=== PATIENT | male | born 1975 | race Caucasian/White ===

== ENCOUNTER → 2016-05-24 | Outpatient (REF) | payer BC ==
[2016-05-24 12:52] LABS: IMMMOTILE SPERM CENTRIFUGED ABSENT (ABSENT); IMMOTILE SPERM ABSENT (ABSENT); MOTILE SPERM ABSENT (ABSENT); MOTILE SPERM CENTRIFUGED ABSENT (ABSENT)
== END ==
LOC: M LAB REF 11:49
PROVIDERS: ATTEND Surgery
DX: Z30.2 Encounter for sterilization (principal)

== ENCOUNTER 2017-03-09 10:40 | Emergency (ER) | payer BC, OTHER ==
[~2017-03-09] VITALS: Ht 182.9 cm; Wt 95.5 kg
[2017-03-09] MEDS ORDERED: KETOROLAC 60 MG/2 ML VIAL (J1885) IM ONE (11:30)
[2017-03-09] MEDS ORDERED: CYCL10TA PO (11:58)
[2017-03-09 12:12] VITALS: BP 124/75
== END 2017-03-09 12:13 | disposition home or self-care (01) ==
LOC: M ED 10:40
DX: M54.2 Cervicalgia (principal); G89.29 Other chronic pain; F17.210 Nicotine dependence, cigarettes, uncomplicated; Z98.890 Other specified postprocedural states
CPT/HCPCS: 96372; 99283; J1885

== ENCOUNTER → 2018-06-02 | Outpatient (REF) | payer OTHER ==
[~2018-06-02] MED LIST: CYCL10TA PO
== END ==
LOC: M SFHCPLAZ 13:01
PROVIDERS: ATTEND Family Medicine
DX: L72.0 Epidermal cyst (principal)

== ENCOUNTER → 2018-09-11 | Outpatient (CLI) | payer OTHER ==
--- NOTE | 2018-09-12 01:35 | REP ---
Clinical: Left facial numbness. Technique: Six views of the facial bones. Findings: Mucoperiosteal changes primarily involving the bilateral maxillary sinuses noted and small amount of layering fluid cannot be excluded. The remainder of the sinuses appear relatively well aerated and clear. The osseous structures are intact and normal. No foreign body. Impression: Moderate mucoperiosteal changes involving the maxillary sinuses. Electronically Signed by Wilmer Urban MD 09/12/2018 01:27 A
--- NOTE | 2018-09-12 01:57 | REP ---
Clinical: Cervical neck pain/stiffness . Technique: AP, lateral, flexion/extension, bilateral oblique, and open-mouth views. Findings: Alignment and lordosis is maintained. There is no evidence for acute fracture / compression injury or subluxation. No significant degenerative changes are appreciated. Oblique views demonstrate patent neural foramen. Open mouth view demonstrates normal C1-C2 articulation and odontoid process. Impression: Age-appropriate cervical spine series. No significant degenerative changes are appreciated by radiographic evaluation. If the patient remains symptomatic consider MRI for further investigation. Electronically Signed by Wilmer Urban MD 09/12/2018 01:48 A
== END ==
LOC: M RAD 14:04
PROVIDERS: ATTEND Nurse Practitioner Family
DX: R20.0 Anesthesia of skin (principal); M43.6 Torticollis; J32.0 Chronic maxillary sinusitis

== ENCOUNTER → 2018-09-15 | Outpatient (REF) | payer OTHER ==
[2018-09-15 16:18] LABS: BASO # 0.1 10^3/uL (0.0-0.2); BASO % 0.7 % (0.0-1.0); EOS # 0.2 10^3/uL (0.0-0.50); EOS % 2.1 % (0.0-3.0); HEMATOCRIT 45.3 % (42.0-52.0); HEMOGLOBIN 15.1 g/dl (13.5-17.5); LYMPH # 3.3 10^3/uL (1.5-4.5); LYMPH % 40.9 % (24.0-44.0); MEAN CORPUSCULAR HEMOGLOBIN 30.8 pg (27.0-33.0); MEAN CORPUSCULAR HGB CONC 33.3 g/dl (32.0-36.5); MEAN CORPUSCULAR VOLUME 92.4 fl (80.0-96.0); MONO # 0.7 10^3/uL (0.0-0.8); MONO % 8.6 % (0.0-5.0); NEUTROPHILS # 3.9 10^3/uL (1.8-7.7); NEUTROPHILS % 47.6 % (36.0-66.0); PLATELET COUNT, AUTOMATED 228 10^3/uL (150-450); WHITE BLOOD COUNT 8.1 10^3/uL (4.0-10.0)
[2018-09-15 16:27] LABS: ALBUMIN 4.3 GM/DL (3.2-5.2); ALT/SGPT 33 U/L (12-78); BILIRUBIN,TOTAL 0.5 MG/DL (0.2-1.0); BLOOD UREA NITROGEN 16 MG/DL (7-18); CALCIUM LEVEL 8.9 MG/DL (8.5-10.1); CARBON DIOXIDE LEVEL 28 MEQ/L (21-32); CHLORIDE LEVEL 102 MEQ/L (98-107); CHOLESTEROL LEVEL 184 MG/DL (<200); CHOLESTEROL RISK RATIO 2.329 (<5); CREATININE FOR GFR 1.23 MG/DL (0.70-1.30); GLOMERULAR FILTRATION RATE > 60.0 (>60); GLUCOSE, FASTING 97 MG/DL (70-100); HDL CHOLESTEROL 79 MG/DL (>40); LDL CHOLESTEROL 89 MG/DL (<100); NON-HDL-C 105 MG/DL; POTASSIUM SERUM 4.5 MEQ/L (3.5-5.1); SODIUM LEVEL 136 MEQ/L (136-145); TRIGLYCERIDES LEVEL 80 MG/DL (<150)
[2018-09-19 00:07] LABS: Lyme Disease IgG/IgM Antibodie <0.91 ISR (0.00-0.90); Lyme Disease IgM Ab Quantitati <0.80 index (0.00-0.79)
== END ==
LOC: M SFHCPLAZ 13:44
PROVIDERS: ATTEND Nurse Practitioner Family
DX: R20.0 Anesthesia of skin (principal); Z13.220 Encounter for screening for lipoid disorders

== ENCOUNTER → 2018-10-19 | Outpatient (CLI) | payer BC ==
[~2018-10-19] MED LIST changes: +PROHANCE 279.3MG/ML 15ML VIAL (A9576) As Ordered ONE; +PROHANCE 279.3MG/ML 5ML VIAL (A9576) As Ordered ONE
--- NOTE | 2018-10-19 10:25 | REP ---
MRI brain without and with IV contrast: History: Left facial numbness for the last 3 months. . Comparison study: No comparison MRI. Technique: Axial and sagittal imaging planes are utilized for T1 and T2-weighted scans. Sequences include spin-echo, fast spin echo, FLAIR, and diffusion weighted sequences. The gadolinium enhancement dose is 19 ml of intravenous ProHance. MRI findings: No bony calvarial lesion is seen. Craniocervical junction and upper cervical cord are normal in appearance. There is moderate mucosal thickening affecting the maxillary and to a lesser extent ethmoid air cells. No intraorbital abnormality is seen. The lateral, third, and fourth ventricles are normal in size and position. Baig-white differentiation pattern is intact above and below the tentorium. There is no evidence of intracranial hemorrhage. No mass, infarction, extra-axial fluid collection or midline shift is seen. No abnormal white matter lesion is seen. Postcontrast images show no abnormal intracranial gadolinium enhancement. Impression: Paranasal sinus mucosal thickening, otherwise negative brain MRI study without and with IV contrast. Electronically Signed by Fortino Aden MD 10/19/2018 10:17 A
== END ==
LOC: M RAD 08:57
PROVIDERS: ATTEND Nurse Practitioner Family
DX: J34.89 Other specified disorders of nose and nasal sinuses (principal)
CPT/HCPCS: 70553; A9576

== ENCOUNTER → 2018-11-21 | Outpatient (REF) | payer BC, OTHER ==
[~2018-11-21] MED LIST changes: -PROHANCE 279.3MG/ML 15ML VIAL (A9576) As Ordered ONE; -PROHANCE 279.3MG/ML 5ML VIAL (A9576) As Ordered ONE
[2018-11-21 12:50] LABS: FOLATE 12.6 NG/ML
[2018-11-26 00:06] LABS: CERULOPLASMIN 20.1 mg/dL (16.0-31.0); COPPER PLASMA 85 ug/dL (72-166); LEAD BLOOD ADULT <1 ug/dL (0-4); MERCURY LEVEL 1.6 ug/L (0.0-14.9); VITAMIN B6,PYRIDOXAL PHOSPHATE 72.8 ug/L (5.3-46.7); VITAMIN E(GAMMA TOCOPHEROL) 2.5 mg/L (0.5-5.5)
== END ==
LOC: M LABNEURO 10:01
PROVIDERS: ATTEND Psychiatry & Neurology Neurology
DX: R20.2 Paresthesia of skin (principal)

== ENCOUNTER 2019-11-27 08:09 | Emergency (ER) | payer BC, OTHER ==
[~2019-11-27 08:09] MED LIST changes: +CYCL-707 PO; -CYCL10TA PO
[2019-11-27] MEDS ORDERED: MORPHINE 4 MG/ML 1ML VIAL/SYRINGE (J2270) ONE (08:54)
[2019-11-27] MEDS ORDERED: LORazepam 2 MG/ML VIAL ONE (08:54)
[2019-11-27] MEDS ORDERED: MORPHINE 4 MG/ML 1ML VIAL/SYRINGE (J2270) As Ordered ONE (08:54)
[2019-11-27] MEDS ORDERED: ONDANSETRON 4MG/2ML VIAL ONE (08:54)
[2019-11-27] MEDS ORDERED: ONDANSETRON 4MG/2ML VIAL As Ordered ONE (08:54)
[2019-11-27] MEDS ORDERED: LORazepam 2 MG/ML VIAL As Ordered ONE (08:56)
== END 2019-11-27 14:55 | disposition home or self-care (01) ==
LOC: M ED 08:09
DX: M54.16 Radiculopathy, lumbar region (principal); M51.27 Other intervertebral disc displacement, lumbosacral region
CPT/HCPCS: 72148; 96374; 96375; 99284; J2060; J2270; J2405

== ENCOUNTER → 2021-06-11 | Outpatient (CLI) | payer BC | LOC: M SLEEP HO 12:20 | PROVIDERS: ATTEND Physician Assistant | DX: G47.30 Sleep apnea, unspecified (principal) ==

== ENCOUNTER → 2021-06-11 | Outpatient (CLI) | payer BC ==
[2021-06-11 13:13] LABS: BASO # 0.1 10^3/uL (0.0-0.2); BASO % 0.6 % (0.0-1.0); EOS # 0.2 10^3/uL (0.0-0.5); EOS % 1.7 % (0.0-3.0); HEMATOCRIT 43.7 % (42.0-52.0); HEMOGLOBIN 14.6 g/dl (13.5-17.5); LYMPH % 31.3 % (24.0-44.0); MEAN CORPUSCULAR HEMOGLOBIN 30.4 pg (27.0-33.0); MEAN CORPUSCULAR HGB CONC 33.4 g/dl (32.0-36.5); MONO # 0.7 10^3/uL (0.0-0.8); MONO % 7.3 % (2.0-8.0); NEUTROPHILS # 5.6 10^3/uL (1.5-8.5); NEUTROPHILS % 58.9 % (36.0-66.0); PLATELET COUNT, AUTOMATED 226 10^3/uL (150-450); WHITE BLOOD COUNT 9.6 10^3/uL (4.0-10.0)
[2021-06-11 13:38] LABS: HEMOGLOBIN A1c 5.7 %
[2021-06-11 13:40] LABS: ALBUMIN 4.2 GM/DL (3.2-5.2); ALT/SGPT 44 U/L (12-78); BILIRUBIN,TOTAL 0.5 MG/DL (0.2-1.0); BLOOD UREA NITROGEN 19 MG/DL (7-18); CALCIUM LEVEL 9.4 MG/DL (8.5-10.1); CARBON DIOXIDE LEVEL 30 MEQ/L (21-32); CHLORIDE LEVEL 105 MEQ/L (98-107); CHOLESTEROL LEVEL 184 MG/DL (<200); CHOLESTEROL RISK RATIO 2.243 (<5); CREATININE FOR GFR 1.14 MG/DL (0.70-1.30); GLOMERULAR FILTRATION RATE > 60.0 (>60); GLUCOSE, FASTING 139 MG/DL (70-100); HDL CHOLESTEROL 82 MG/DL (>40); LDL CHOLESTEROL 91 MG/DL (<100); NON-HDL-C 102 MG/DL; POTASSIUM SERUM 4.1 MEQ/L (3.5-5.1); SODIUM LEVEL 140 MEQ/L (136-145); TOTAL PROTEIN 7.7 GM/DL (6.4-8.2); TRIGLYCERIDES LEVEL 54 MG/DL (<150)
== END ==
LOC: M LAB 12:23
PROVIDERS: ATTEND Physician Assistant
DX: M51.36 Other intervertebral disc degeneration, lumbar region (principal); Z13.220 Encounter for screening for lipoid disorders; Z13.1 Encounter for screening for diabetes mellitus

== ENCOUNTER → 2021-06-11 | Outpatient (CLI) | payer BC, OTHER | LOC: M PAIN 11:30 | PROVIDERS: ATTEND Nurse Practitioner Family | DX: M96.1 Postlaminectomy syndrome, not elsewhere classified (principal); Z87.891 Personal history of nicotine dependence; Z79.899 Other long term (current) drug therapy ==

== ENCOUNTER → 2021-07-09 | Outpatient (CLI) | payer BC ==
[~2021-07-09] MED LIST changes: +PROHANCE 279.3MG/ML 15ML VIAL As Ordered ONE; +PROHANCE 279.3MG/ML 5ML VIAL As Ordered ONE
== END ==
LOC: M RAD 07:20
PROVIDERS: ATTEND Nurse Practitioner Family
DX: M96.1 Postlaminectomy syndrome, not elsewhere classified (principal); M51.36 Other intervertebral disc degeneration, lumbar region; M51.37 Other intervertebral disc degeneration, lumbosacral region; M48.062 Spinal stenosis, lumbar region with neurogenic claudication; M48.07 Spinal stenosis, lumbosacral region
CPT/HCPCS: 72158; A9576

== ENCOUNTER → 2021-08-27 | Outpatient (CLI) | payer BC ==
[~2021-08-27] MED LIST changes: -PROHANCE 279.3MG/ML 15ML VIAL As Ordered ONE; -PROHANCE 279.3MG/ML 5ML VIAL As Ordered ONE
== END ==
LOC: M SLEEP 20:00
PROVIDERS: ATTEND Physician Assistant
DX: G47.33 Obstructive sleep apnea (adult) (pediatric) (principal)

== ENCOUNTER → 2021-09-04 | Outpatient (CLI) | payer BC | LOC: M RAD 09:20 | PROVIDERS: ATTEND Anesthesiology Pain Medicine | DX: M96.1 Postlaminectomy syndrome, not elsewhere classified (principal) ==

== ENCOUNTER → 2022-04-29 | Outpatient (REF) | payer BC ==
[2022-04-29 13:33] LABS: BASO # 0.1 10^3/uL (0.0-0.2); BASO % 0.7 % (0.0-1.0); EOS # 0.3 10^3/uL (0.0-0.5); EOS % 3.9 % (0.0-3.0); HEMATOCRIT 45.6 % (42.0-52.0); HEMOGLOBIN 14.6 g/dl (13.5-17.5); LYMPH # 3.2 10^3/uL (1.5-5.0); LYMPH % 38.5 % (24.0-44.0); MEAN CORPUSCULAR VOLUME 93.8 fl (80.0-96.0); MONO # 0.7 10^3/uL (0.0-0.8); MONO % 8.7 % (2.0-8.0); PLATELET COUNT, AUTOMATED 220 10^3/uL (150-450); RED BLOOD COUNT 4.86 10^6/uL (4.30-6.10); WHITE BLOOD COUNT 8.3 10^3/uL (4.0-10.0)
[2022-04-29 13:46] LABS: HEMOGLOBIN A1c 5.4 % (4.0-6.0)
[2022-04-29 14:08] LABS: ALBUMIN 4.1 G/DL (3.2-5.2); ALKALINE PHOSPHATASE 46 U/L (46-116); ALT/SGPT 35 U/L (7.0-40); AST/SGOT 20 U/L (<34); BILIRUBIN,TOTAL 0.6 MG/DL (0.3-1.2); BLOOD UREA NITROGEN 17 MG/DL (9-23); CALCIUM LEVEL 9.3 MG/DL (8.5-10.1); CARBON DIOXIDE LEVEL 27 MMOL/L (20-31); CHLORIDE LEVEL 104 MMOL/L (98-107); CHOLESTEROL LEVEL 165 MG/DL (<200); CHOLESTEROL RISK RATIO 2.22 (<5); CREATININE FOR GFR 0.94 MG/DL (0.70-1.30); GLOMERULAR FILTRATION RATE > 60.0 (>60); GLUCOSE, FASTING 95 MG/DL (60-100); LDL CHOLESTEROL 81.8 MG/DL (<100); NON-HDL-C 91 MG/DL; POTASSIUM SERUM 4.9 MMOL/L (3.5-5.1); SODIUM LEVEL 139 MMOL/L (136-145); TRIGLYCERIDES LEVEL 46 MG/DL (<150)
== END ==
LOC: M SFHCADAM 09:27
PROVIDERS: ATTEND Physician Assistant
DX: R73.03 Prediabetes (principal)

== ENCOUNTER → 2024-02-23 | Outpatient (REF) | payer BC ==
[2024-02-23 13:14] LABS: BASO # 0.1 10^3/uL (0.0-0.2); BASO % 1.1 % (0.0-1.0); EOS # 0.1 10^3/uL (0.0-0.5); EOS % 2.1 % (0.0-3.0); HEMATOCRIT 43.2 % (42.0-52.0); HEMOGLOBIN 14.4 g/dl (13.5-17.5); LYMPH # 2.4 10^3/uL (1.5-5.0); LYMPH % 35.9 % (24.0-44.0); MEAN CORPUSCULAR HEMOGLOBIN 30.7 pg (27.0-33.0); MEAN CORPUSCULAR HGB CONC 33.3 g/dl (32.0-36.5); MEAN CORPUSCULAR VOLUME 92.1 fl (80.0-96.0); MONO # 0.5 10^3/uL (0.0-0.8); MONO % 7.4 % (2.0-8.0); NEUTROPHILS # 3.5 10^3/uL (1.5-8.5); PLATELET COUNT, AUTOMATED 198 10^3/uL (150-450); RED BLOOD COUNT 4.69 10^6/uL (4.30-6.10); WHITE BLOOD COUNT 6.7 10^3/uL (4.0-10.0)
[2024-02-23 13:15] LABS: ALBUMIN 4.2 G/DL (3.2-5.2); ALKALINE PHOSPHATASE 44 U/L (46-116); ALT/SGPT 30 U/L (7.0-40); AST/SGOT 15 U/L (<34); BILIRUBIN,TOTAL 0.6 MG/DL (0.3-1.2); BLOOD UREA NITROGEN 13 MG/DL (9-23); CALCIUM LEVEL 9.6 MG/DL (8.5-10.1); CARBON DIOXIDE LEVEL 26 MMOL/L (20-31); CHLORIDE LEVEL 108 MMOL/L (98-107); CHOLESTEROL LEVEL 206 MG/DL (<200); CHOLESTEROL RISK RATIO 2.87 (<5); CREATININE FOR GFR 0.78 MG/DL (0.70-1.30); GLOMERULAR FILTRATION RATE > 60.0 (>60); GLUCOSE, FASTING 113 MG/DL (60-100); HDL CHOLESTEROL 71.7 MG/DL (>40); LDL CHOLESTEROL 125.7 MG/DL (<100); NON-HDL-C 134.3 MG/DL; POTASSIUM SERUM 4.7 MMOL/L (3.5-5.1); SODIUM LEVEL 139 MMOL/L (136-145); TOTAL PROTEIN 7.4 G/DL (5.7-8.2); TRIGLYCERIDES LEVEL 43 MG/DL (<150)
[2024-02-23 13:36] LABS: HEMOGLOBIN A1c 5.6 % (4.0-6.0)
== END ==
LOC: M SFHCADAM 09:49
PROVIDERS: ATTEND Physician Assistant
DX: Z00.00 Encounter for general adult medical examination without abnormal findings (principal); M96.1 Postlaminectomy syndrome, not elsewhere classified; R73.03 Prediabetes

== ENCOUNTER 2024-09-04 16:14 | Emergency (ER) | payer BC ==
[~2024-09-04] VITALS: Ht 182.9 cm; Wt 99.0 kg
[2024-09-04 19:05] VITALS: BP 142/89; TEMP 99.5; O2SAT 96
== END 2024-09-04 20:48 | disposition left against medical advice (07) ==
LOC: M ED 16:14
DX: Z53.21 Procedure and treatment not carried out due to patient leaving prior to being seen by health care provider (principal)

== ENCOUNTER 2024-09-05 19:19 | Inpatient (IN) | payer BC ==
[~2024-09-05] VITALS: Ht 182.9 cm; Wt 100.5 kg
[2024-09-05 19:45] LABS: BASO % 0.1 % (0.0-1.0); EOS # 0.1 10^3/uL (0.0-0.5); EOS % 1.3 % (0.0-3.0); HEMATOCRIT 43.5 % (42.0-52.0); HEMOGLOBIN 14.7 g/dl (13.5-17.5); LYMPH # 0.7 10^3/uL (1.5-5.0); LYMPH % 6.9 % (24.0-44.0); MEAN CORPUSCULAR HEMOGLOBIN 30.8 pg (27.0-33.0); MEAN CORPUSCULAR HGB CONC 33.8 g/dl (32.0-36.5); MEAN CORPUSCULAR VOLUME 91.2 fl (80.0-96.0); MONO # 0.3 10^3/uL (0.0-0.8); MONO % 3.6 % (2.0-8.0); NEUTROPHILS # 8.2 10^3/uL (1.5-8.5); NEUTROPHILS % 87.8 % (36.0-66.0); PLATELET COUNT, AUTOMATED 156 10^3/uL (150-450); RED BLOOD COUNT 4.77 10^6/uL (4.30-6.10); WHITE BLOOD COUNT 9.4 10^3/uL (4.0-10.0)
[2024-09-05] MEDS: NS (Normal Saline) 0.9% 1,000 ML IV ONE ×3 (19:59→22:36)
[2024-09-05] MEDS: ONDANSETRON 4MG 2ML VIAL IV ONE (19:59)
[2024-09-05] MEDS: MORPHINE 4 MG/ML 1ML VIAL IV ONE (19:59)
[2024-09-05] MEDS ORDERED: ISOVUE-370 76% 100ML VIAL As Ordered ONE (20:02)
[2024-09-05] MEDS: ACETAMINOPHEN *IV* 1,000 MG in IV 1 EA IV ONE (20:03)
[2024-09-05 20:42] LABS: BLOOD UREA NITROGEN 18 MG/DL (9-23); CALCIUM LEVEL 8.6 MG/DL (8.5-10.1); CARBON DIOXIDE LEVEL 24 MMOL/L (20-31); CHLORIDE LEVEL 102 MMOL/L (98-107); CK-MB VALUE MASS < 1.0 NG/ML (<3.6); CPK CREATINE PHOSPHOKINASE 66 U/L (46-171); GLOMERULAR FILTRATION RATE > 90.0 (>60); GLUCOSE, FASTING 158 MG/DL (60-100); MB/CK RELATIVE INDEX 1.51 (< OR =4); POTASSIUM SERUM 4.5 MMOL/L (3.5-5.1); SODIUM LEVEL 139 MMOL/L (136-145)
[2024-09-05 21:16] LABS: CK-MB VALUE MASS < 1.0 NG/ML (<3.6)
[2024-09-05 21:17] LABS: CPK CREATINE PHOSPHOKINASE 54 U/L (46-171); MB/CK RELATIVE INDEX 1.85 (< OR =4)
[2024-09-05 21:45] LABS: PROCALCITONIN 0.44 ng/ml
[2024-09-05] MEDS: CEFEPIME HCL 2 GM in DEXTROSE 5% (D5W) ADV/MINI-BAG 50 ML IV ONE (21:54)
[2024-09-05 22:32] LABS: MUCUS, URINE RFX SMALL (NEGATIVE); RBC, URINE AUTO RFX 1 /HPF (0-3); SQUAM EPITHELIAL CELL UR AURFX 0 /HPF (0-6); WBC, URINE AUTO RFX 0 /HPF (0-3)
[2024-09-05 23:00] LABS: KETONE, URINE AUTO RFX NEGATIVE (NEGATIVE)
[2024-09-05 23:01] LABS: LEUKOCYTE ESTERASE UR AUTO RFX NEGATIVE (NEGATIVE); NITRITE, URINE AUTO RFX NEGATIVE (NEGATIVE)
[2024-09-06] VITALS (11 sets, daily range): BP systolic 107–140; BP diastolic 73–87; TEMP 97.7–99.1; O2SAT 93–98
[2024-09-06] MEDS ORDERED: ONDANSETRON 4MG ORAL DISINTEGRATING TAB SL PRN (00:50)
[2024-09-06] MEDS ORDERED: MOM 30ML SUSPENSION UDC PO PRN (00:50)
[2024-09-06] MEDS ORDERED: MAALOX 30 ML SUSP *UDC PO PRN (00:50)
[2024-09-06] MEDS ORDERED: MELO15TA28 PO (01:05)
[2024-09-06] MEDS ORDERED: GABA-1172 PO (01:05)
[2024-09-06] MEDS ORDERED: BACTDSTA PO (01:05)
[2024-09-06] MEDS ORDERED: HOME MED LIST COMPLETE! XX SCH (01:10)
[2024-09-06] MEDS: METHOCARBAMOL 1,000 MG/10 ML VIAL IV ONE (01:22)
[2024-09-06] MEDS: ACETAMINOPHEN 325 MG TAB PO PRN (03:58)
[2024-09-06 05:53] LABS: HEMATOCRIT 36.8 % (42.0-52.0); MEAN CORPUSCULAR HEMOGLOBIN 31.1 pg (27.0-33.0); MEAN CORPUSCULAR HGB CONC 34.2 g/dl (32.0-36.5); MEAN CORPUSCULAR VOLUME 90.9 fl (80.0-96.0); PLATELET COUNT, AUTOMATED 143 10^3/uL (150-450); RED BLOOD COUNT 4.05 10^6/uL (4.30-6.10); WHITE BLOOD COUNT 6.2 10^3/uL (4.0-10.0)
[2024-09-06 05:56] LABS: HEMOGLOBIN 12.6 g/dl (13.5-17.5)
[2024-09-06 06:27] LABS: ALBUMIN 2.9 G/DL (3.2-5.2); ALKALINE PHOSPHATASE 34 U/L (40-129); ALT/SGPT 28 U/L (7.0-40); AST/SGOT 14 U/L (<34); BILIRUBIN,TOTAL 0.6 MG/DL (0.3-1.2); BLOOD UREA NITROGEN 12 MG/DL (9-23); CALCIUM LEVEL 7.5 MG/DL (8.5-10.1); CARBON DIOXIDE LEVEL 23 MMOL/L (20-31); CHLORIDE LEVEL 108 MMOL/L (98-107); CREATININE FOR GFR 0.84 MG/DL (0.70-1.30); GLOMERULAR FILTRATION RATE > 90.0 (>60); GLUCOSE, FASTING 128 MG/DL (60-100); MAGNESIUM LEVEL 1.6 MG/DL (1.8-2.4); SODIUM LEVEL 140 MMOL/L (136-145); TOTAL PROTEIN 5.7 G/DL (5.7-8.2)
[2024-09-06] MEDS: methocarbamoL 750 MG TAB PO PRN (08:05)
[2024-09-06] MEDS: LACTOBACILLUS ACIDOPHILUS CAP PO SCH (08:05)
[2024-09-06] MEDS: PANTOPRAZOLE 40MG TAB PO SCH (08:05)
[2024-09-06] MEDS: LIDOCAINE 5% (LIDODERM) PATCH TD SCH (08:06)
[2024-09-06] MEDS: CEFEPIME HCL 2 GM in DEXTROSE 5% (D5W) ADV/MINI-BAG 50 ML IV SCH (08:07)
[2024-09-06] MEDS: DOCUSATE SODIUM 100MG CAPSULE PO SCH (08:08)
[2024-09-06] MEDS: ENOXAPARIN 40MG/0.4ML SYRINGE (J1650 PER 10MG) SC SCH (08:08)
[2024-09-06] MEDS: MAG SULF 1GM/100ML (MAG RUN) 1 GM in IV 1 EA IV ONE (09:45)
[2024-09-06] MEDS: ACETAMINOPHEN *IV* 1,000 MG in IV 1 EA IV ONE (14:55)
[2024-09-06] MEDS: KETOROLAC 30 MG/ML 1ML VIAL IV ONE (14:55)
[2024-09-06 15:11] LABS: APPEARANCE, CSF CLEAR (CLEAR); COLOR, CSF COLORLESS (COLORLESS); CSF TUBE# CELL CNT TUBE 1
[2024-09-06 15:14] LABS: CSF TUBE# CELL CNT TUBE 4
[2024-09-06 15:15] LABS: APPEARANCE, CSF CLEAR (CLEAR); COLOR, CSF COLORLESS (COLORLESS)
[2024-09-06 15:24] LABS: CSF TUBE# TP TUBE 2; TOTAL PROTEIN,CSF 41.3 MG/DL (15-45)
[2024-09-06 15:26] LABS: CSF TUBE# GLU TUBE 2
[2024-09-06 16:44] LABS: C REACTIVE PROTEIN QUANTITATIV 6.32 MG/DL (<1.0)
[2024-09-06] MEDS ORDERED: PROHANCE 279.3MG/ML 5ML VIAL As Ordered ONE (18:46)
[2024-09-06] MEDS ORDERED: PROHANCE 279.3MG/ML 15ML VIAL As Ordered ONE (18:47)
[2024-09-06] MEDS: DAPTOmycin 750 MG in NS 50 ML IV SCH (23:37)
[2024-09-07 00:40] VITALS: BP 117/80; TEMP 98.1; O2SAT 94
[2024-09-07 04:40] VITALS: BP 117/82; TEMP 98.8; O2SAT 95
[2024-09-07 05:35] LABS: HEMATOCRIT 36.3 % (42.0-52.0); HEMOGLOBIN 12.4 g/dl (13.5-17.5); MEAN CORPUSCULAR HEMOGLOBIN 31.1 pg (27.0-33.0); MEAN CORPUSCULAR HGB CONC 34.2 g/dl (32.0-36.5); PLATELET COUNT, AUTOMATED 142 10^3/uL (150-450); RED BLOOD COUNT 3.99 10^6/uL (4.30-6.10); WHITE BLOOD COUNT 4.9 10^3/uL (4.0-10.0)
[2024-09-07 05:55] LABS: C REACTIVE PROTEIN QUANTITATIV 8.96 MG/DL (<1.0)
[2024-09-07 05:57] LABS: ALBUMIN 2.9 G/DL (3.2-5.2); ALKALINE PHOSPHATASE 35 U/L (40-129); ALT/SGPT 25 U/L (7.0-40); AST/SGOT 15 U/L (<34); BILIRUBIN,TOTAL 0.4 MG/DL (0.3-1.2); BLOOD UREA NITROGEN 11 MG/DL (9-23); CARBON DIOXIDE LEVEL 26 MMOL/L (20-31); CHLORIDE LEVEL 108 MMOL/L (98-107); CREATININE FOR GFR 0.81 MG/DL (0.70-1.30); GLOMERULAR FILTRATION RATE > 90.0 (>60); GLUCOSE, FASTING 122 MG/DL (60-100); MAGNESIUM LEVEL 2.1 MG/DL (1.8-2.4); POTASSIUM SERUM 4.1 MMOL/L (3.5-5.1); SODIUM LEVEL 142 MMOL/L (136-145); TOTAL PROTEIN 5.8 G/DL (5.7-8.2)
[2024-09-07 06:01] LABS: PROCALCITONIN 0.47 ng/ml
[2024-09-07 08:30] VITALS: BP 144/88; TEMP 98.2; O2SAT 97
[2024-09-07] MEDS: DOXYCYCLINE HYCLATE 100MG TABLET PO SCH (10:34)
[2024-09-07 12:00] VITALS: BP 132/88; TEMP 97.9; O2SAT 96
[2024-09-07] MEDS ORDERED: MORPHINE 4 MG/ML 1ML VIAL IV ONE (14:00)
[2024-09-07] MEDS: KETOROLAC 30 MG/ML 1ML VIAL IV SCH (15:04)
[2024-09-07 16:00] VITALS: BP 131/91; TEMP 97.2; O2SAT 95
[2024-09-07 19:41] VITALS: BP 141/89; TEMP 98; O2SAT 99
[2024-09-07] MEDS: MORPHINE 4 MG/ML 1ML VIAL IV ONE (20:37)
[2024-09-08 03:32] VITALS: BP 129/90; TEMP 98.2; O2SAT 96
[2024-09-08 07:35] LABS: BASO % 0.7 % (0.0-1.0); EOS # 0.3 10^3/uL (0.0-0.5); EOS % 4.6 % (0.0-3.0); HEMATOCRIT 34.6 % (42.0-52.0); HEMOGLOBIN 11.8 g/dl (13.5-17.5); LYMPH # 2.3 10^3/uL (1.5-5.0); LYMPH % 42.1 % (24.0-44.0); MEAN CORPUSCULAR HEMOGLOBIN 31.3 pg (27.0-33.0); MEAN CORPUSCULAR HGB CONC 34.1 g/dl (32.0-36.5); MEAN CORPUSCULAR VOLUME 91.8 fl (80.0-96.0); MONO # 0.5 10^3/uL (0.0-0.8); MONO % 9.8 % (2.0-8.0); NEUTROPHILS # 2.3 10^3/uL (1.5-8.5); NEUTROPHILS % 42.4 % (36.0-66.0); PLATELET COUNT, AUTOMATED 160 10^3/uL (150-450); RED BLOOD COUNT 3.77 10^6/uL (4.30-6.10); WHITE BLOOD COUNT 5.4 10^3/uL (4.0-10.0)
[2024-09-08 08:03] LABS: BLOOD UREA NITROGEN 12 MG/DL (9-23); CALCIUM LEVEL 8.3 MG/DL (8.5-10.1); CARBON DIOXIDE LEVEL 29 MMOL/L (20-31); CHLORIDE LEVEL 106 MMOL/L (98-107); CREATININE FOR GFR 0.81 MG/DL (0.70-1.30); GLOMERULAR FILTRATION RATE > 90.0 (>60); GLUCOSE, FASTING 140 MG/DL (60-100); POTASSIUM SERUM 4.2 MMOL/L (3.5-5.1); SODIUM LEVEL 143 MMOL/L (136-145)
[2024-09-08 08:20] VITALS: BP 143/93; TEMP 97.9; O2SAT 97
[2024-09-08 12:00] VITALS: BP_SYST 160; BP_SYST 60; BP_DIAS 101; TEMP 98.2; O2SAT 95
[2024-09-08 12:05] VITALS: BP 130/72
[2024-09-08 20:01] VITALS: BP 128/86; TEMP 98.2; O2SAT 95
[2024-09-08] MEDS ORDERED: diphenhydrAMINE 25MG CAP PO PRN (23:35)
[2024-09-08 23:45] VITALS: BP 131/79; TEMP 97.9; O2SAT 96
[2024-09-09 03:42] VITALS: BP 124/81; TEMP 98.2; O2SAT 95
[2024-09-09 06:14] LABS: BASO # 0.1 10^3/uL (0.0-0.2); BASO % 0.9 % (0.0-1.0); EOS # 0.3 10^3/uL (0.0-0.5); EOS % 4.5 % (0.0-3.0); HEMATOCRIT 35.5 % (42.0-52.0); HEMOGLOBIN 12.2 g/dl (13.5-17.5); LYMPH # 2.6 10^3/uL (1.5-5.0); LYMPH % 44.3 % (24.0-44.0); MEAN CORPUSCULAR HEMOGLOBIN 31.4 pg (27.0-33.0); MEAN CORPUSCULAR HGB CONC 34.4 g/dl (32.0-36.5); MEAN CORPUSCULAR VOLUME 91.3 fl (80.0-96.0); MONO # 0.5 10^3/uL (0.0-0.8); MONO % 8.7 % (2.0-8.0); NEUTROPHILS # 2.4 10^3/uL (1.5-8.5); NEUTROPHILS % 40.9 % (36.0-66.0); PLATELET COUNT, AUTOMATED 198 10^3/uL (150-450); RED BLOOD COUNT 3.89 10^6/uL (4.30-6.10); WHITE BLOOD COUNT 5.8 10^3/uL (4.0-10.0)
[2024-09-09 06:42] LABS: BLOOD UREA NITROGEN 15 MG/DL (9-23); CALCIUM LEVEL 8.7 MG/DL (8.5-10.1); CARBON DIOXIDE LEVEL 30 MMOL/L (20-31); CHLORIDE LEVEL 106 MMOL/L (98-107); GLOMERULAR FILTRATION RATE > 90.0 (>60); GLUCOSE, FASTING 108 MG/DL (60-100); POTASSIUM SERUM 4.3 MMOL/L (3.5-5.1); SODIUM LEVEL 145 MMOL/L (136-145)
[2024-09-09 08:00] VITALS: BP 142/68; TEMP 97.2; O2SAT 97
[2024-09-09 20:28] VITALS: BP 138/88; TEMP 97.9; O2SAT 96
[2024-09-10 04:12] VITALS: BP 124/86; TEMP 97.5; O2SAT 95
[2024-09-10 05:53] LABS: BASO # 0.1 10^3/uL (0.0-0.2); BASO % 0.9 % (0.0-1.0); EOS # 0.2 10^3/uL (0.0-0.5); EOS % 3.3 % (0.0-3.0); HEMATOCRIT 37.9 % (42.0-52.0); HEMOGLOBIN 12.8 g/dl (13.5-17.5); LYMPH % 44.7 % (24.0-44.0); MEAN CORPUSCULAR HEMOGLOBIN 30.7 pg (27.0-33.0); MEAN CORPUSCULAR HGB CONC 33.8 g/dl (32.0-36.5); MEAN CORPUSCULAR VOLUME 90.9 fl (80.0-96.0); MONO # 0.6 10^3/uL (0.0-0.8); MONO % 8.3 % (2.0-8.0); NEUTROPHILS # 2.7 10^3/uL (1.5-8.5); NEUTROPHILS % 41.3 % (36.0-66.0); PLATELET COUNT, AUTOMATED 234 10^3/uL (150-450); RED BLOOD COUNT 4.17 10^6/uL (4.30-6.10); WHITE BLOOD COUNT 6.6 10^3/uL (4.0-10.0)
[2024-09-10 06:09] LABS: BLOOD UREA NITROGEN 13 MG/DL (9-23); CALCIUM LEVEL 8.6 MG/DL (8.5-10.1); CARBON DIOXIDE LEVEL 29 MMOL/L (20-31); CHLORIDE LEVEL 104 MMOL/L (98-107); CREATININE FOR GFR 0.89 MG/DL (0.70-1.30); GLOMERULAR FILTRATION RATE > 90.0 (>60); GLUCOSE, FASTING 107 MG/DL (60-100); POTASSIUM SERUM 4.2 MMOL/L (3.5-5.1); SODIUM LEVEL 142 MMOL/L (136-145)
[2024-09-10 12:21] VITALS: BP 137/98; TEMP 97.9; O2SAT 96
[2024-09-10 19:47] VITALS: BP 141/99; TEMP 98.1; O2SAT 96
[2024-09-11 03:28] VITALS: BP 138/87; TEMP 97.3; O2SAT 94
[2024-09-11 06:38] LABS: BASO # 0.1 10^3/uL (0.0-0.2); BASO % 1.5 % (0.0-1.0); EOS # 0.2 10^3/uL (0.0-0.5); EOS % 2.9 % (0.0-3.0); HEMATOCRIT 40.6 % (42.0-52.0); HEMOGLOBIN 13.8 g/dl (13.5-17.5); LYMPH # 3.1 10^3/uL (1.5-5.0); LYMPH % 40.9 % (24.0-44.0); MEAN CORPUSCULAR HEMOGLOBIN 30.9 pg (27.0-33.0); MEAN CORPUSCULAR VOLUME 90.8 fl (80.0-96.0); MONO # 0.7 10^3/uL (0.0-0.8); MONO % 9.8 % (2.0-8.0); NEUTROPHILS # 3.2 10^3/uL (1.5-8.5); NEUTROPHILS % 42.1 % (36.0-66.0); PLATELET COUNT, AUTOMATED 264 10^3/uL (150-450); RED BLOOD COUNT 4.47 10^6/uL (4.30-6.10); WHITE BLOOD COUNT 7.6 10^3/uL (4.0-10.0)
[2024-09-11 07:03] LABS: BLOOD UREA NITROGEN 16 MG/DL (9-23); CALCIUM LEVEL 8.8 MG/DL (8.5-10.1); CARBON DIOXIDE LEVEL 29 MMOL/L (20-31); CHLORIDE LEVEL 105 MMOL/L (98-107); GLOMERULAR FILTRATION RATE > 90.0 (>60); GLUCOSE, FASTING 100 MG/DL (60-100); POTASSIUM SERUM 4.5 MMOL/L (3.5-5.1); SODIUM LEVEL 142 MMOL/L (136-145)
[2024-09-11 20:32] VITALS: BP 145/91; TEMP 97.9; O2SAT 94
[2024-09-12 05:03] LABS: BORRELIA SPECIES DNA NOT DETECTED (NOT DETECT)
[2024-09-12 05:08] VITALS: BP 135/88; TEMP 98.2; O2SAT 97
[2024-09-12 06:10] LABS: BASO # 0.1 10^3/uL (0.0-0.2); BASO % 1.3 % (0.0-1.0); EOS # 0.3 10^3/uL (0.0-0.5); EOS % 3.4 % (0.0-3.0); HEMATOCRIT 40.6 % (42.0-52.0); HEMOGLOBIN 13.8 g/dl (13.5-17.5); LYMPH # 2.9 10^3/uL (1.5-5.0); LYMPH % 34.9 % (24.0-44.0); MEAN CORPUSCULAR VOLUME 91.2 fl (80.0-96.0); MONO # 0.8 10^3/uL (0.0-0.8); MONO % 9.5 % (2.0-8.0); NEUTROPHILS % 48.3 % (36.0-66.0); PLATELET COUNT, AUTOMATED 269 10^3/uL (150-450); RED BLOOD COUNT 4.45 10^6/uL (4.30-6.10); WHITE BLOOD COUNT 8.2 10^3/uL (4.0-10.0)
[2024-09-12 06:38] LABS: BLOOD UREA NITROGEN 15 MG/DL (9-23); CARBON DIOXIDE LEVEL 29 MMOL/L (20-31); CHLORIDE LEVEL 104 MMOL/L (98-107); GLOMERULAR FILTRATION RATE > 90.0 (>60); GLUCOSE, FASTING 101 MG/DL (60-100); POTASSIUM SERUM 4.5 MMOL/L (3.5-5.1); SODIUM LEVEL 141 MMOL/L (136-145)
[2024-09-12] MEDS ORDERED: CEFE2INJ2 IV (09:23)
[2024-09-12] MEDS ORDERED: DAPT500V8 IV (09:23)
[2024-09-12] MEDS ORDERED: DOXY100T PO (09:23)
[2024-09-12] MEDS ORDERED: METH-1165 PO (09:28)
[2024-09-12] MEDS ORDERED: DAPT500F IV (09:28)
[2024-09-12] MEDS ORDERED: BACI1CAP PO (09:28)
[2024-09-12] MEDS ORDERED: PANT40TA29 PO (09:28)
[2024-09-12] MEDS ORDERED: IBUP-1114 PO (09:32)
[2024-09-12] MEDS ORDERED: DIPH-435 PO (09:32)
[2024-09-12 11:42] LABS: Babesia microti NOT DETECTED (NOT DETECT); Ehrlichia chaffeensis NOT DETECTED (NOT DETECT)
[2024-09-12 11:52] LABS: Anaplasma phagocytophilum NOT DETECTED (NOT DETECT)
[2024-09-12 14:52] LABS: LYME TOTAL ANTIBODY CIA <= 0.90 Index (<=0.90)
== END 2024-09-12 13:15 | disposition home health service (06) | DRG 720 ==
LOC: M ED 19:19 → M ED INP 23:54 → M MSPAV 09-06 01:39
PROVIDERS: ADMIT Family Medicine; ATTEND General Practice
PROC: 009U3ZX Drainage of Spinal Canal, Percutaneous Approach, Diagnostic (ICD-10-PCS; principal; 2024-09-06 14:20)
DX: A41.9 Sepsis, unspecified organism (principal); G06.2 Extradural and subdural abscess, unspecified; D69.6 Thrombocytopenia, unspecified; M46.46 Discitis, unspecified, lumbar region; M62.838 Other muscle spasm; R07.9 Chest pain, unspecified; R11.2 Nausea with vomiting, unspecified; R19.7 Diarrhea, unspecified; R42 Dizziness and giddiness; G47.33 Obstructive sleep apnea (adult) (pediatric); R73.03 Prediabetes; J98.11 Atelectasis; R51.9 Headache, unspecified

== ENCOUNTER → 2024-11-21 | Outpatient (CLI) | payer BC ==
[~2024-11-21] MED LIST changes: +BACI1CAP PO; +BACTDSTA PO; +CEFE2INJ2 IV; +DAPT500F IV; +DAPT500V8 IV; +DIPH-435 PO; +DOXY100T PO; +GABA-1172 PO; +IBUP-1114 PO; +MELO15TA28 PO; +METH-1165 PO; +PANT40TA29 PO; +PROHANCE 279.3MG/ML 15ML VIAL ONE; +PROHANCE 279.3MG/ML 5ML VIAL ONE
== END ==
LOC: M PLAIMG 13:31
PROVIDERS: ATTEND Nurse Practitioner Family
DX: M54.16 Radiculopathy, lumbar region (principal); M54.59 Other low back pain
CPT/HCPCS: 72158; A9576

== ENCOUNTER → 2025-03-04 | Outpatient (CLI) | payer BC ==
[~2025-03-04] MED LIST changes: -PROHANCE 279.3MG/ML 15ML VIAL ONE; -PROHANCE 279.3MG/ML 5ML VIAL ONE
== END ==
LOC: M WUC 10:31
PROVIDERS: ATTEND Nurse Practitioner Family
DX: M25.511 Pain in right shoulder (principal); M25.512 Pain in left shoulder; M19.012 Primary osteoarthritis, left shoulder; M19.011 Primary osteoarthritis, right shoulder; M65.221 Calcific tendinitis, right upper arm; M65.222 Calcific tendinitis, left upper arm